=== PATIENT | female | born 1955 | race Caucasian/White ===

== ENCOUNTER 2016-08-16 11:10 | Emergency (ER) | payer MEDICARE, MEDICAID ==
[~2016-08-16] VITALS: Ht 160 cm; Wt 64.0 kg
[2016-08-16] MEDS ORDERED: KETOROLAC 60MG/2ML VIAL IM ONE (11:45)
[2016-08-16] MEDS ORDERED: ONDANSETRON 4MG ODT PO ONE (11:45)
[2016-08-16 11:46] VITALS: BP 122/76
== END 2016-08-16 12:18 | disposition home or self-care (01) ==
LOC: ER 11:23
DX: M25.551 Pain in right hip (principal); V49.9XXA Car occupant (driver) (passenger) injured in unspecified traffic accident, initial encounter; Y93.89 Activity, other specified; Y92.89 Other specified places as the place of occurrence of the external cause; Y99.8 Other external cause status
CPT/HCPCS: 96372; 99283; J1885; Q0162